=== PATIENT | female | born 1985 | race Caucasian/White ===

== ENCOUNTER 2016-08-01 13:22 | Emergency (ER) | payer MEDICAID, OTHER ==
[2016-08-01 14:04] LABS: % BASOPHILS 0.6 % (0.0-2.0); % EOSINOPHILS 2.1 % (0.0-5.0); % LYMPHOCYTES 28.8 % (20.0-50.0); % MONOCYTES 9.2 % (2.0-10.0); % NEUTROPHILS 59.3 % (40.0-80.0); HEMATOCRIT 41.5 % (35.0-45.0); HEMOGLOBIN 13.8 gm/dL (11.7-15.5); MEAN CELL VOLUME 85.3 fl (81-100); MEAN CORPUSCULAR HEMOGLOBIN 28.4 pg (27.0-31.0); MEAN CORPUSCULAR HGB CONC 33.3 pg (28.0-36.0); MEAN PLATELET VOLUME 7.9 fl; NEUTROPHILE ABSOLUTE 4.3 Th/cmm (1.8-8.0); PLATELET COUNT 281 Th/cmm (150-400); RED BLOOD COUNT 4.86 Mil/cmm (3.80-5.10); RED CELL DISTRIBUTION WIDTH 15.7 % (11.5-20.0)
--- NOTE | 2016-08-01 14:04 | ED Physician Chart ---
Chief Complaint/HPI - Patient Information Date Seen:: 08/01/16 Time Seen:: 14:01 Chief Complaint:: LEFT FLANK PAIN History of Present Illness:: THIS IS A 31 YO FEMALE WITH LEFT FLANK PAIN AND NO NAUSEA OR VOMITING. SHE JUST DELIVERED A BABY ABOUT A VINNIE Allergies:: Allergies Allergy/AdvReac Type Severity Reaction Status Date / Time No Known Allergies Allergy Verified 08/01/16 13:36 Vitals:: Vital Signs - 8 hr 08/01/16 13:37 Temp 97.1 F HR 68 RR 15 BP 109/66 O2 Sat % 99 Historian:: Patient Review:: Nurse's Note Reviewed Review of Systems - Review of Systems General/Constitutional: No fever, No chills, No weight loss, No weakness, No diaphoresis, No edema, No loss of appetite Skin: No skin lesions, No rash, No bruising Head: No headache, No light-headedness Eyes: No loss of vision, No pain, No diplopia ENT: No earache, No nasal drainage, No sore throat, No tinnitus Neck: No neck pain, No swelling, No thyromegaly, No stiffness, No mass noted Cardio Vascular: No chest pain, No palpitations, No PND, No orthopnea, No edema Pulmonary: No SOB, No cough, No sputum, No wheezing GI: No nausea, No vomiting, No diarrhea, Pain, No melena, No hematochezia, No constipation, No hematemesis G/U: No dysuria, No frequency, No hematuria Musculoskeletal: No bone or joint pain, No back pain, No muscle pain Endocrine: No polyuria, No polydipsia Psychiatric: No prior psych history, No depression, No anxiety, No suicidal ideation Hematopoietic: No bruising, No lymphadenopathy Allergic/Immuno: No urticaria, No angioedema Neurological: No syncope, No focal symptoms, No weakness, No paresthesia, No headache, No seizure, No dizziness, No confusion, No vertigo Past Medical History - Past Medical History Obtainable: Yes Past Medical History: No significant medical hx Family History: None Social History: Non Smoker, No Alcohol, No Drug Use Surgical History: None Psychiatricy History: None Medication: Reviewed Family Medical History - Family Member Mother History Unknown: Yes Physical Exam - Physical Examination General/Constitutional: Awake, Well-developed, well-nourished, Alert, No distress, GCS 15, Non-toxic appearing, Ambulatory Head: Atraumatic Eyes: Lids, conjuctiva normal, PERRL, EOMI Skin: Nl inspection, No rash, No skin lesions, No ecchymosis, Well hydrated, No lymphadenopathy ENMT: External ears, nose nl, Nasal exam nl, Lips, teeth, gums nl Neck: Nontender, Full ROM w/o pain, No JVD, No nuchal rigidity, No bruit, No mass, No stridor Respiratory: Nl effort/Exclusion, Clear to Auscultation, No Wheeze/Rhonchi/Rales Cardio Vascular: RRR, No murmur, gallop, rubs, NL S1 S2 GI: No organomegaly, No hernia, Normal BS's, Nondistended, No mass/bruits, No McBurney tenderness Other GI comments:: LEFT FLANK TENDERNESS : No CVA tenderness Extremities: No tenderness or effusion, Full ROM, normal strength in all extremities, No edema, Normal digits & nails Neuro/Psych: Alert/oriented, DTR's symmetric, Normal sensory exam, Normal motor strength, Judgement/insight normal, Mood normal, Normal gait, No focal deficits Misc: normal gait, Normal back, No paraspinal tenderness Assessment - Assessment General Assessment: AFTER THE ROCEPHIN HER EXAMINE WAS NORMAL IN THE L FLANK AND BLADDER AREA. THE PATIENT LOOKS MUCH BETTER. ED Septic Shock - . Is Septic Shock (SBP<90, OR Lactate>4 mmol\L) present?: No - <6hrs of presentation: Vital Signs: Vital Signs - 8 hr 08/01/16 13:37 Temp 97.1 F HR 68 RR 15 BP 109/66 O2 Sat % 99 Reassessment (Disposition) - Reassessment Reassessment Condition:: Improved - Diagnosis Diagnosis:: BRONCHITIS SINUSITIS URINARY TRACT INFECTION - Aftercare/Follow up Instructions Aftercare/Follow-Up Instructions:: Counseled pt regarding lab results/diagnosis & need follow up, Refer to Discharge Instructions, Counseled pt & family regarding lab results/diagnosis & need follow up - Patient Disposition Discharge/Transfer:: Home Condition at Disposition:: Improved
[2016-08-01 14:18] LABS: ALB/GLOB RATIO 1.2 (1.0-1.8); ALKALINE PHOSPHATASE 80 U/L (34-104); ANION GAP 10.8 (7.0-16.0); BILIRUBIN,TOTAL 0.3 mg/dL (0.3-1.0); BUN - UREA NITROGEN 10 mg/dL (7-25); BUN/CREATININE RATIO 16.7; CALCIUM SERUM 9.5 mg/dL (8.6-10.3); CARBON DIOXIDE 23.8 mEq/L (21.0-31.0); CHLORIDE 106 mEq/L (98-107); CREATININE - SERUM 0.6 mg/dL (0.6-1.2); GLUCOSE 87 mg/dL (70-105); POTASSIUM SERUM 3.6 mEq/L (3.5-5.1); SGOT 29 U/L (13-39); SGPT/ALT 33 U/L (7-52); SODIUM SERUM 137 mEq/L (136-145)
[2016-08-01 14:46] LABS: URINE BACTERIA FEW /hpf (NONE SEEN); URINE BILIRUBIN NEGATIVE (NEGATIVE); URINE BLOOD NEGATIVE (NEGATIVE); URINE COLOR YELLOW; URINE EPITHELIAL CELLS MODERATE /lpf (FEW); URINE GLUCOSE (UA) NEGATIVE (NEGATIVE); URINE KETONE NEGATIVE (NEGATIVE); URINE PH 7.5; URINE PROTEIN NEGATIVE (NEGATIVE); URINE RBC 0-1 /hpf (0-5); URINE UROBILINOGEN 0.2 E.U./dL (0.2 - 1.0); URINE WBC 0-2 /hpf (0-5)
[2016-08-01] MEDS ORDERED: IOHEXOL 300MG/ML 100 ML VIAL PO ONE (15:57)
--- NOTE | 2016-08-01 17:05 | Diagnostic Imaging Report ---
CT scan of the abdomen and pelvis with intravenous contrast History: Pain Total DLP equals 554 CTDI equals 11.8 Following administration of intravenous contrast, axial sections were obtained from the xiphoid process down to the pubic symphysis. Exam of the liver demonstrates a normal size and contour. No focal lesions are seen. The spleen appears normal. No abnormalities are seen in the region of the pancreas. The kidneys appear normal bilaterally. No focal lesions or hydronephrosis. There is a small fat-containing umbilical hernia. Nondilated stool-filled large bowel noted. The exam of the pelvis demonstrates a markedly distended urinary bladder. Hypodensity is seen within the adnexal regions bilaterally. Findings may be associated with ovarian cystic changes. If indicated, a pelvic ultrasound exam would provide additional detail. Impression: 1. Markedly distended urinary bladder 2. Suggestion of hypodensity within the adnexal regions bilaterally. The findings may be associated with ovarian cystic changes. If indicated, a pelvic ultrasound exam would provide additional detail. 3. Nondilated stool-filled large bowel or small fat-containing umbilical hernia
--- NOTE | 2016-08-02 11:41 | Diagnostic Imaging Report ---
Ultrasound abdomen HISTORY: Left flank tenderness COMPARISON: CT abdomen and pelvis performed the same day Technique: Sonography of the abdomen was performed in multiple planes. FINDINGS: The liver demonstrates normal echogenicity with no evidence of focal lesions. The liver measures 18.4 cm . No evidence of gallstones or gallbladder wall thickening. The common bile duct measures 3mm. Evaluation of the pancreas is limited due to bowel gas. The right kidney measures 13.1 cm. No evidence of focal lesions or hydronephrosis. The left kidney measures 11.4 cm. No evidence of focal lesions or hydronephrosis. The spleen measures 10.4 cm. The proximal aorta measures 1.75 cm. The mid abdominal aorta measures 1.3 cm. The distal abdominal aorta measures 1.6 cm. IMPRESSION: No evidence of hydronephrosis or sonographic evidence of renal stones. Mild increased right renal size. Please cortical clinical findings. Hepatomegaly.
--- NOTE | 2016-08-02 11:43 | Diagnostic Imaging Report ---
Ultrasound pelvis HISTORY: Pain. Last menstrual period is 07/09/2016. COMPARISON: CT abdomen and pelvis the same day Technique: Longitudinal and transverse sonographic sector images of the pelvis were obtained transabdominally and transvaginally. FINDINGS: The uterus measures 8.4 x 4.3 x 5.6 cm. The endometrium measures 7 mm. The right ovary measures 4.1 x 3.4 cm. A left lower measures 3.6 x 2.6 cm. Vascular flow to ovaries is noted. Bilateral ovarian follicular cystic changes are seen, right greater than left. Small amount of fluid is seen within the endocervical canal. Small amount of free fluid is also seen within the pelvis. IMPRESSION: Bilateral ovarian follicular cystic changes, likely physiologic. Vascular flow to both ovaries noted. Small amount of fluid within the endocervical canal. Small amount of free fluid was also noted within the pelvis. Please correlate clinically.
== END 2016-08-01 19:40 | disposition home or self-care (01) ==
LOC: ER 13:22
DX: J40 Bronchitis, not specified as acute or chronic (principal); J32.9 Chronic sinusitis, unspecified; N39.0 Urinary tract infection, site not specified
CPT/HCPCS: 99285; 96372 ×2; 76700; 76856; 74177; 36415; 85025; 81001; 81025; 80053; 87040 ×2; J1885; J0696; Q9967; Z7502

== ENCOUNTER 2016-08-03 07:16 | Inpatient (IN) | payer MEDICAID ==
--- NOTE | 2016-08-03 07:47 | ED Physician Chart ---
Chief Complaint/HPI - Patient Information Date Seen:: 08/03/16 Time Seen:: 07:42 Chief Complaint:: l abd pain History of Present Illness:: pt was here monday w left side abd/pelvic/flank pains...pt had a ct ab/p scan and a pelvic us. showed left ovarian infl changes but ok flow. pt reports pain is episodically sever and intolerable. she has had no fever. no diarrhea nor constipation. she feels nausea from the pain this am but no vomiting. pt w no vag dc and no urinary complaints. is not feeling better w tylenol and cipro. pt s/p vag delivery 05/29/16...her last 2 months of were complicated by a left side pain for which no explanation was ever attached by drs. pt says she was not given any pain meds during that time. she had a pelivc exam 1 month post delivery and was told all was well. pt had a nrml lmp last month..due again 08/06. pt was breast feeding but now is using a pump to keep up flow since on abx. pt was on antidepressant through (fluoxetine 20mg/d). 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 [place] to stay w her parents while selling that house. she has a appt to see her new pmd on 08/11/16. Allergies:: Allergies Allergy/AdvReac Type Severity Reaction Status Date / Time No Known Allergies Allergy Verified 08/03/16 07:28 Vitals:: Vital Signs - 8 hr 08/03/16 07:16 Temp 97.5 F HR 73 RR 16 BP 106/73 O2 Sat % 100 Historian:: Patient Review of Systems - Review of Systems General/Constitutional: No fever, No chills, No weight loss, No weakness, No diaphoresis, No edema, No loss of appetite Skin: No skin lesions, No rash, No bruising Head: No headache, No light-headedness Eyes: No loss of vision, No pain, No diplopia ENT: No earache, No nasal drainage, No sore throat, No tinnitus Neck: No neck pain, No swelling, No thyromegaly, No stiffness, No mass noted Cardio Vascular: No chest pain, No palpitations, No PND, No orthopnea, No edema Pulmonary: No SOB, No cough, No sputum, No wheezing GI: Nausea, No vomiting, No diarrhea, Pain, No melena, No hematochezia, No constipation, No hematemesis G/U: No dysuria, No frequency, No hematuria Musculoskeletal: No bone or joint pain, No back pain, No muscle pain Endocrine: No polyuria, No polydipsia Psychiatric: No prior psych history, No depression, No anxiety, No suicidal ideation Hematopoietic: No bruising, No lymphadenopathy Allergic/Immuno: No urticaria, No angioedema Neurological: No syncope, No focal symptoms, No weakness, No paresthesia, No headache, No seizure, No dizziness, No confusion, No vertigo Past Medical History - Past Medical History Past Medical History: Other (recent vag del 05/29/16) Social History: Non Smoker Surgical History: None Medication: Reviewed Family Medical History - Family Member Mother History Unknown: Yes Father Living Status: Still Living Hx Family Hypertension: Yes Physical Exam - Physical Examination General/Constitutional: Awake, Well-developed, well-nourished, Alert, No distress, GCS 15, Non-toxic appearing, Ambulatory Head: Atraumatic Eyes: Lids, conjuctiva normal, PERRL, EOMI Skin: Nl inspection, No rash, No skin lesions, No ecchymosis, Well hydrated, No lymphadenopathy ENMT: External ears, nose nl, Nasal exam nl, Lips, teeth, gums nl Neck: Nontender, Full ROM w/o pain, No JVD, No nuchal rigidity, No bruit, No mass, No stridor Respiratory: Nl effort/Exclusion, Clear to Auscultation, No Wheeze/Rhonchi/Rales Cardio Vascular: RRR, No murmur, gallop, rubs, NL S1 S2 GI: No tenderness/rebounding/guarding, No organomegaly, No hernia, Normal BS's, Nondistended, No mass/bruits, No McBurney tenderness Other GI comments:: vague tndr low left pelvis/abd..also points to left cva as source of pain. quiet bs. no rebound. no masses. : No CVA tenderness Extremities: No tenderness or effusion, Full ROM, normal strength in all extremities, No edema, Normal digits & nails Neuro/Psych: Alert/oriented, DTR's symmetric, Normal sensory exam, Normal motor strength, Judgement/insight normal, Mood normal, Normal gait, No focal deficits Misc: normal gait, Normal back, No paraspinal tenderness Labs/Radiology/EKG Results - Lab Results Results: Laboratory Tests 08/03/16 08/03/16 08/03/16 08:15 08:15 09:40 WBC 6.7 RBC 4.64 Hgb 13.2 Hct 38.6 MCV 83.3 MCH 28.5 MCHC Differential 34.3 RDW 15.5 Plt Count 279 MPV 7.5 Neutrophils % 49.5 Lymphocytes % 41.3 Monocytes % 7.1 Eosinophils % 1.8 Basophils % 0.3 Sodium 134 L Potassium 4.4 Chloride 107 Carbon Dioxide 20.3 L Anion Gap 11.1 BUN 11 Creatinine 0.7 Est GFR ( Amer) > 60.0 Est GFR (Non-Af Amer) > 60.0 BUN/Creatinine Ratio 15.7 Glucose 93 Calcium 9.4 Total Bilirubin 0.3 AST 31 ALT 27 Alkaline Phosphatase 87 Total Protein 7.0 Albumin 4.0 Globulin 3.0 Albumin/Globulin Ratio 1.3 Lipase 14 Urine Source Urine Color Urine Clarity Urine pH Ur Specific [place] Urine Protein Urine Glucose (UA) Urine Ketones Urine Blood Urine Nitrate Urine Bilirubin Urine Urobilinogen Ur Leukocyte Esterase Urine RBC Urine WBC Ur Epithelial Cells Urine Bacteria Urine Test NEGATIVE 08/03/16 09:40 WBC RBC Hgb Hct MCV MCH MCHC Differential RDW Plt Count MPV Neutrophils % Lymphocytes % Monocytes % Eosinophils % Basophils % Sodium Potassium Chloride Carbon Dioxide Anion Gap BUN Creatinine Est GFR ( Amer) Est GFR (Non-Af Amer) BUN/Creatinine Ratio Glucose Calcium Total Bilirubin AST ALT Alkaline Phosphatase Total Protein Albumin Globulin Albumin/Globulin Ratio Lipase Urine Source CLEAN C Urine Color YELLOW Urine Clarity SL. CLOUDY Urine pH 7.5 Ur Specific [place] 1.025 Urine Protein NEGATIVE Urine Glucose (UA) NEGATIVE Urine Ketones NEGATIVE Urine Blood NEGATIVE Urine Nitrate NEGATIVE Urine Bilirubin NEGATIVE Urine Urobilinogen 0.2 Ur Leukocyte Esterase NEGATIVE Urine RBC NONE SEEN Urine WBC 0-2 Ur Epithelial Cells MANY Urine Bacteria OCCASIONAL Urine Test - Radiology Results Results: us abd/p negative except for changes cw b ovarian cysts. no fluid in uterous. slt fluid around l adnexa/left uterous..less than before. ct abd/p- mod dist loops small bowel left hemidiaphragm. focal ileus vs infection vs inflamatory changes. regional mesentary inflam changes ED Septic Shock - . Is Septic Shock (SBP<90, OR Lactate>4 mmol\L) present?: No - <6hrs of presentation: Vital Signs: Vital Signs - 8 hr 08/03/16 07:16 Temp 97.5 F HR 73 RR 16 BP 106/73 O2 Sat % 100 Reassessment (Disposition) - Reassessment Reassessment:: case dw dr guzman 12;59 who is admitting for sx consult... Reassessment Condition:: Improved - Diagnosis Diagnosis:: 1. left sided abdominal pain fo uncertain etiology 2. back pain 3. ileus vs infection vs inflammatory changes and distended loops of s.b. of left small bowel - Aftercare/Follow up Instructions Aftercare/Follow-Up Instructions:: Counseled pt & family regarding lab results/ diagnosis & need follow up - Patient Disposition Admitted to:: Med/Surg Condition at Disposition:: Unchanged
[2016-08-03] MEDS ORDERED: Sodium Chloride 0.9% 1,000 ML IV ONE (08:02)
[2016-08-03] MEDS ORDERED: Morphine Sulfate 4 mg/mL 1mL Syr IVP STA (08:04)
[2016-08-03] MEDS ORDERED: Morphine Sulfate 4 mg/mL 1mL Syr ONE (08:28)
[2016-08-03 08:30] LABS: % BASOPHILS 0.3 % (0.0-2.0); % EOSINOPHILS 1.8 % (0.0-5.0); % LYMPHOCYTES 41.3 % (20.0-50.0); % MONOCYTES 7.1 % (2.0-10.0); % NEUTROPHILS 49.5 % (40.0-80.0); HEMATOCRIT 38.6 % (35.0-45.0); HEMOGLOBIN 13.2 gm/dL (11.7-15.5); MEAN CELL VOLUME 83.3 fl (81-100); MEAN CORPUSCULAR HEMOGLOBIN 28.5 pg (27.0-31.0); MEAN CORPUSCULAR HGB CONC 34.3 pg (28.0-36.0); MEAN PLATELET VOLUME 7.5 fl; NEUTROPHILE ABSOLUTE 3.3 Th/cmm (1.8-8.0); PLATELET COUNT 279 Th/cmm (150-400); RED BLOOD COUNT 4.64 Mil/cmm (3.80-5.10); RED CELL DISTRIBUTION WIDTH 15.5 % (11.5-20.0); WHITE BLOOD COUNT 6.7 Th/cmm (4.8-10.8)
[2016-08-03 08:44] LABS: ALB/GLOB RATIO 1.3 (1.0-1.8); ALKALINE PHOSPHATASE 87 U/L (34-104); ANION GAP 11.1 (7.0-16.0); BILIRUBIN,TOTAL 0.3 mg/dL (0.3-1.0); BUN - UREA NITROGEN 11 mg/dL (7-25); BUN/CREATININE RATIO 15.7; CALCIUM SERUM 9.4 mg/dL (8.6-10.3); CARBON DIOXIDE 20.3 mEq/L (21.0-31.0); CHLORIDE 107 mEq/L (98-107); CREATININE - SERUM 0.7 mg/dL (0.6-1.2); GLUCOSE 93 mg/dL (70-105); LIPASE 14 U/L (11-82); POTASSIUM SERUM 4.4 mEq/L (3.5-5.1); SGOT 31 U/L (13-39); SGPT/ALT 27 U/L (7-52); SODIUM SERUM 134 mEq/L (136-145)
--- NOTE | 2016-08-03 10:26 | Diagnostic Imaging Report ---
Ultrasound abdomen HISTORY: Abdominal pain. Ovarian cysts. COMPARISON: CT abdomen and pelvis on 08/01/2016 ultrasound abdomen on 08/01/2016 Technique: Sonography of the abdomen was performed in multiple planes. FINDINGS: Exam is limited due to bowel gas. The liver demonstrates normal echogenicity with no evidence of focal lesions. The liver measures 19 cm. The gallbladder is mildly dilated. No evidence of gallstones or gallbladder wall thickening. The common bile measures 4 mm. Evaluation of the pancreas is limited due to bowel gas. The right kidney measures 13.2 cm. No evidence of focal lesions or hydronephrosis. The left kidney measures 10.9 cm. No evidence of focal lesions or hydronephrosis. The spleen measures 10.1 cm. IMPRESSION: Mild hepatomegaly. Mildly dilated gallbladder, however, no evidence of gallstones No evidence of hydronephrosis. Mild increased size of the right kidney as seen on prior exam.
--- NOTE | 2016-08-03 10:40 | Diagnostic Imaging Report ---
Ultrasound pelvis HISTORY: Low back and pelvic pain. History of pelvic cysts. LMP is 08/06/2016 beta-hCG is not available. COMPARISON: Ultrasound pelvis on 08/01/[address] abdomen and pelvis on 08/01/2016 Technique: Longitudinal and transverse sonographic sector images of the pelvis were obtained transabdominally and transvaginally. FINDINGS: The uterus measures 9.0 x 4.4 x 5.8 cm. The endometrium measures 6 mm. No evidence of fluid in the endometrial cavity. The right ovary measures 3.1 x 2.3 cm demonstrating follicular cystic changes the largest measuring 1.6 cm. The left ovary measures 2.9 x 2.6 cm demonstrating follicular cystic changes the largest measuring 0.7 cm. Small amount of free fluid is noted in the pelvis. IMPRESSION: Bilateral ovarian follicular cystic changes with dominant right ovarian follicular cyst measuring 1.6 cm. Small amount of free fluid in the pelvis. The endometrium measures 6 mm, please correlate with menstrual cycle. In the presence of a positive test, ectopic gestation should be excluded.
[2016-08-03 11:06] LABS: URINE BILIRUBIN NEGATIVE (NEGATIVE); URINE BLOOD NEGATIVE (NEGATIVE); URINE COLOR YELLOW; URINE GLUCOSE (UA) NEGATIVE (NEGATIVE); URINE KETONE NEGATIVE (NEGATIVE)
[2016-08-03 11:07] LABS: URINE PH 7.5; URINE PROTEIN NEGATIVE (NEGATIVE); URINE UROBILINOGEN 0.2 E.U./dL (0.2 - 1.0)
[2016-08-03 11:14] LABS: URINE BACTERIA OCCASIONAL /hpf (NONE SEEN); URINE EPITHELIAL CELLS MANY /lpf (FEW); URINE RBC NONE SEEN /hpf (0-5); URINE WBC 0-2 /hpf (0-5)
--- NOTE | 2016-08-03 11:43 | Diagnostic Imaging Report ---
CT abdomen and pelvis without intravenous contrast Indication: Left-sided abdominal pain increased since previous exams Comparison: Prior CT abdomen and pelvis on 08/01/2016, study was also compared to today's ultrasound. Technique: Axial images were obtained from the lung bases to the bilateral proximal femurs without IV contrast. Coronal reconstructions were made. total DLP: 496, CTDI 10.5 FINDINGS: Hypoventilatory and atelectatic changes of the lung bases are noted. The hepatic dome is incompletely visualized on this exam. Assessment of solid organs is limited due to lack of IV contrast. No focal hepatic lesions. No evidence of focal splenic or pancreatic lesions. No focal adrenal lesions. No evidence of hydronephrosis or focal renal lesions. Distended urinary bladder is noted. Right adnexal cystic changes are noted. Moderate stool is seen throughout the colon. No evidence of acute appendicitis. There are mild to moderate distended fluid-filled loops of bowel along the left hemiabdomen with minimal haziness of the mesentery in this region. No free fluid or free air. The osseous structures demonstrate no acute abnormalities. IMPRESSION: Mild to moderate fluid distended loops of small bowel along the left hemiabdomen. Findings are nonspecific and may be due to focal ileus or infectious or inflammatory process. Minimal haziness and inflammatory changes of regional mesentery is also noted. Please correlate with clinical findings. Copious stool throughout the colon. Please correlate Clinically for constipation. No evidence of free fluid in the pelvis. Small right adnexal cystic changes.
--- NOTE | 2016-08-03 13:52 | Admit Criteria Form ---
Admit Criteria Forms - Admit Criteria Diagnosis: ABDOMINAL PAIN Clinical Indications for Admission to Inpatient Care (Place 'X' for any and all applicable criteria): Admission is indicated for ANY ONE of the following(1)(2)(3)(4)(5): [X ]I. Inpatient admission required rather than observation care (Also use Abdominal Pain: Observation Care, as appropriate) because of ANY ONE of the following: [ X]a) Severe pain requiring acute inpatient management [ ]b) Identification of etiology/finding that requires inpatient care (eg, aortic dissection, free air) [ ]c) Absent bowel sounds with complete ileus(6) [ ]d) Suspected toxic megacolon [ ]e) Severe electrolyte abnormalities requiring inpatient care [ ]f) High fever or infection requiring inpatient admission as indicated by ANY ONE of following(7)(8): [ ] i) Appropriate outpatient or observational care antimicrobial treatment unavailable, not effective, or not feasible [ ] ii) Documented bacteremia [ ] iii) Temperature > 104.9 degrees F (oral) [ ] iv) T >103.1 F (oral) or < 96.8 F(rectal) that does not respond to all emergency treatment measures [ ]g) Signs of intestinal obstruction [B] [ ]h) Hemodynamic instability [ ]i) IV fluid to replace significant ongoing losses (greater than 3 L/m2 per day) (12)(13) [ ]j) Percutaneous or open drainage (eg, abscess, biliary tract ) procedures [ ]k) Parenteral nutrition regimen that must be implemented on inpatient basis [ ]l) Other condition,treatment or monitoring requiring inpatient admission. [ ]II. Peritoneal signs present [ ]III. Surgery needed that cannot be performed on an ambulatory basis. [ ]IV. Evaluation requires patient to not eat or drink for extended period ( eg, more than 24 hours). [ ]V. Contraindications and/or Inappropriate clinical situations for Observational Care in patients with abdominal pain, when ANY ONE of the following is required: [ ]a) Thorough evaluation is required to prevent catastrophic events due to delays in diagnosing (e.g.Mesenteric ischemia) 1,3 [ ]b) Patient with severe pathology or with chronic symptoms unlikely to improve in the ED stay (3) [ ]. General contraindications and/or Inappropriate clinical situations for Observational Care in patients with abdominal pain, when ANY ONE of the following is required: [ ]a) Prediction of prolongation of LOS based on ANY ONE of the following may be considered as a contraindication for observational care 2, 3, 4, 5, 6, 7, 8, 9, 10, 11 [ ]i) Age > 65 yrs. [ ]ii) Patient arriving by ambulance [ ]iii) Patient with high acuity [ ]iv) Patient requiring vital sign monitoring [ ]v) Patient on IV medication [ ]b) Systolic blood pressures 180mmHg 3,12 [ ]c) Patient with altered mental status including delirium and other alteration of consciousness, (3) [ ]d) Patient whose discharge disposition will be to a senior living home or rehabilitation home should not be managed in Emergency Department Observation Unit. CMS rule requires 3 days hospital stay before such placement.3,13 [ ]e) Patient with failure to thrive due to broad array of etiologies 3,16,17 [ ]f) Inability to ambulate 3,14 Extended stay beyond goal length of stay may be needed for(2)(3): [ ]a) Persistent abdominal pain with suspected intra-abdominal process [ ]b) Diagnosed condition requiring continued stay (e.g., pancreatitis, complicated diverticulitis) [ ]c) Surgery (e.g., colectomy) The original [facility] content created by [employer] has been revised. The portions of the content which have been revised are identified through the use of italic text or in bold, and [facility] has neither reviewed nor approved the modified material.All other unmodified content is copyright [facility]. Please see references footnoted in the original [facility] edition 2016 Admit Criteria Met?: Yes
[2016-08-03] MEDS: D5-0.45NS 1,000 ML IV SCH (16:25)
[2016-08-03] MEDS: cefTRIAXone 1 GM in Sodium Chloride 0.9% 50 ML IV SCH (16:27)
[2016-08-03] MEDS: Morphine Sulfate 2 mg/mL 1mL Syr IV PRN (21:41)
[2016-08-04 06:57] LABS: % BASOPHILS 0.5 % (0.0-2.0); % LYMPHOCYTES 39.4 % (20.0-50.0); % MONOCYTES 8.1 % (2.0-10.0); HEMATOCRIT 39.6 % (35.0-45.0); HEMOGLOBIN 13.2 gm/dL (11.7-15.5); MEAN CORPUSCULAR HEMOGLOBIN 28.3 pg (27.0-31.0); MEAN CORPUSCULAR HGB CONC 33.3 pg (28.0-36.0); MEAN PLATELET VOLUME 7.5 fl; NEUTROPHILE ABSOLUTE 2.8 Th/cmm (1.8-8.0); PLATELET COUNT 280 Th/cmm (150-400); RED BLOOD COUNT 4.66 Mil/cmm (3.80-5.10); RED CELL DISTRIBUTION WIDTH 15.3 % (11.5-20.0); WHITE BLOOD COUNT 5.8 Th/cmm (4.8-10.8)
[2016-08-04 07:24] LABS: ALB/GLOB RATIO 1.2 (1.0-1.8); ALKALINE PHOSPHATASE 77 U/L (34-104); BILIRUBIN,TOTAL 0.4 mg/dL (0.3-1.0); BUN - UREA NITROGEN 6 mg/dL (7-25); BUN/CREATININE RATIO 8.6; CALCIUM SERUM 9.2 mg/dL (8.6-10.3); CARBON DIOXIDE 26.8 mEq/L (21.0-31.0); CHLORIDE 105 mEq/L (98-107); CREATININE - SERUM 0.7 mg/dL (0.6-1.2); GLUCOSE 93 mg/dL (70-105); LIPASE 9 U/L (11-82); POTASSIUM SERUM 3.8 mEq/L (3.5-5.1); SGOT 26 U/L (13-39); SGPT/ALT 26 U/L (7-52); SODIUM SERUM 138 mEq/L (136-145)
[2016-08-04] MEDS ORDERED: Diatrizoate Meglumine/Diatri 30 mL Sol PO ONE (10:15)
[2016-08-04] MEDS: Lactulose 10 Gm/15 mL 30mL UDC PO SCH ×2 (10:43→16:38)
--- NOTE | 2016-08-04 12:30 | History & Physical ---
CHIEF COMPLAINT: Persistent abdominal pain. HISTORY OF PRESENT ILLNESS: This is a 31-year-old female with no medical problem status post delivery on 05/29/2016, who reports a 15 day hx of worsening secondary left-sided abdominal pain. The patient apparently was induced earlier from her due date given the persistent pain which started around her 7th month of . Post delivery, she has had recurrence of pain, which is on and off and it is worsened when lying down. She denies any constipation, any nausea, vomiting, any acid reflux symptomatology or any previous similar episodes. She also denies any hx of constipation or any GI symptomatology history. The patient tells me that she was medicated with an epidural and had fentanyl during her delivery, but has not been taking any narcotics post delivery. She presented to the ER a couple days ago for the above-mentioned symptomatology and also cold symptoms for which she was given Zithromax, but the pain has remained and now it is diffuse epigastric, but again it is mostly located in the left side of her abdomen. She does report daily bowel movements but again denies any significant constipation. The patient also was diagnosed with UTI on her previous ER visit and also was given Cipro. PERTINENT FINDINGS ON ADMISSION: Include an abdominal and pelvic CT, which showed mild to moderate fluid, distended loops of small bowel on the left hemiabdomen. Findings are nonspecific and may be due to focal ileus or inflammatory process. There was also an abdominal ultrasound done showing mild hepatomegaly. The patient has been admitted to the medical floor for further management and care. PAST MEDICAL HISTORY: None. PAST SURGICAL HISTORY: None. FAMILY HISTORY: Essentially negative. SOCIAL HISTORY: No tobacco, ETOH or illicit drug usage. Lives at home with family. ALLERGIES: NKDA. OUTPATIENT MEDICATIONS: Tylenol 500 mg q. 8 p.r.n. for pain, Z-Jasper, ciprofloxacin 250 mg b.i.d. and Prozac 20 every day. REVIEW OF SYSTEMS: CONSTITUTIONAL: No fever or chills. CARDIAC: No chest pain, palpitations. PULMONARY: No cough or sputum production. GASTROINTESTINAL: Please refer to the HPI. GENITOURINARY: Denies any dysuria, hematuria or nocturia. NEUROLOGIC: No changes in vision. No syncope. PHYSICAL EXAMINATION: VITAL SIGNS: Temperature 98.4, pulse 68, BP 102/63, respirations 18, satting 100% on room air. GENERAL: Well-developed, well-nourished female, awake, alert and oriented x 3, not in acute distress. HEAD AND NECK: Normocephalic, atraumatic. Pupils reactive to light. CARDIOVASCULAR: Regular rate and rhythm without any murmurs. LUNGS: Clear to auscultation bilaterally. ABDOMEN: Soft, supple. Currently, nontender, nondistended. There is no rebound and there is normoactive bowel sounds. LOWER EXTREMITIES: There is no pedal edema. LABORATORY DATA: CBC was essentially within normal limits. Chem-20 was essentially within normal limits. UA was negative. DIAGNOSTICS: Please refer to HPI. IMPRESSION: 1. Persistent left-sided abdominal pain, likely secondary to focal ileus/constipation, doubt infectious etiology. (ddx includes the above vs IBS?) 2. Ileus/constipation. 3. Hepatomegaly. 4. Recent vaginal delivery. PLAN: The patient has been admitted to the medical floor for supportive care and treatment. She has been placed on IV fluids and empiric IV Rocephin. I had discussed the findings of the diagnostics, and the patient will receive stool laxatives and anti-constipation medications. Given the length of her symptoms, a GI eval will also be asked for further management and care. SBFT will be order to r/o SBO. JOB# [id number] NETTA
--- NOTE | 2016-08-04 12:51 | Diagnostic Imaging Report ---
KUB abdominal film HISTORY: Pain The exam demonstrates stool-filled nondilated large bowel with an otherwise nonspecific appearance. Air seen in the rectal region. No free intraperitoneal air. Small calcification noted in the left lower pelvis. IMPRESSION: 1. Stool-filled nondilated large bowel with an otherwise nonspecific appearance.
--- NOTE | 2016-08-04 16:28 | Diagnostic Imaging Report ---
Small bowel follow-through HISTORY: Pain, abdominal distention Water-soluble contrast was administered by mouth. There is free flow contrast from the stomach into the duodenum. Normal transit of contrast through the remainder of the small bowel to the colon. There is a normal small bowel caliber and mucosal pattern. No focal abnormalities. No evidence of any extrinsic masses. IMPRESSION: Negative examination.
[2016-08-04] MEDS: cefTRIAXone 1 GM in Sodium Chloride 0.9% 50 ML IV SCH (16:42)
[2016-08-04] MEDS: D5-0.45NS 1,000 ML IV SCH (21:57)
[2016-08-05] MEDS: Morphine Sulfate 2 mg/mL 1mL Syr IV PRN (04:33)
--- NOTE | 2016-08-05 06:46 | Consultation ---
INPATIENT GI CONSULTATION REFERRING PHYSICIAN: Dr. Alvarado. REASON FOR CONSULTATION: Change in bowel habits, constipation, and abdominal pain. HISTORY OF PRESENT ILLNESS: This is a 31-year-old female, who was recently in the hospital with left-sided pain and was sent home, but pain recurred, and therefore came back to the hospital. She states that she has been feeling constipated, denies nausea or vomiting, denies diarrhea. Denies melena, hematochezia, hematemesis, or coffee-ground emesis. PAST MEDICAL HISTORY: Recent delivery from 2 months ago. PAST SURGICAL HISTORY: None to abdomen. FAMILY HISTORY: Noncontributory. SOCIAL HISTORY: Denies tobacco, alcohol, or IV drug usage. ALLERGIES: None. CURRENT MEDICATIONS: Dulcolax, ceftriaxone, Colace, Prozac, Toradol, lactulose, morphine, and Zofran. REVIEW OF SYSTEMS: Ten-point review of system was performed and the pertinent positives were constipation and lower abdominal pain. All other systems were otherwise negative. PHYSICAL EXAMINATION: VITAL SIGNS: Temperature is 98.4, breathing 18, pulse of 68, blood pressure 102/63, satting 100%. GENERAL: In no apparent distress. EYES: Anicteric, normal conjunctivae. HEENT: Normocephalic and atraumatic. Moist mucous membranes. NECK: Soft, supple. CHEST: Clear. No effort. CARDIOVASCULAR: Regular rate and rhythm. ABDOMEN: Soft, nondistended, mildly tender in the left lower quadrant. No rebound or guarding. SKIN: Warm and dry. EXTREMITIES: Reveal no cyanosis. PSYCHOLOGIC: Alert and oriented x 3. LABORATORY DATA: Showed normal urinary analysis, normal LFTs and lipase. Normal CBC. CT of the abdomen and pelvis showed fluid distended small bowel loops, copious amounts of stool throughout the colon. Abdominal ultrasound showed hepatomegaly. IMPRESSION: A 31-year-old female with change in bowel habits, left lower quadrant pain. CT suggesting enteritis and constipation. This could explain the abdominal pain type of picture. The patient is currently on antibiotics. Colonoscopy was offered to the patient to evaluate the constipation, but she declined. She was made aware that failure to have a colonoscopy could result in a missed diagnosis such as cancer, although less likely given her age, missed diagnosis, missed cure and treatment opportunity resulting in early or unforeseeable disability. PLAN: 1. Continue laxatives and antibiotics. 2. Offered colonoscopy, the patient refused. 3. Small bowel follow through was ordered by primary care provider and is pending. Thank you for allowing me to participate. Please call me if you have any questions. JOB# [id number]
[2016-08-05] MEDS: Lactulose 10 Gm/15 mL 30mL UDC PO SCH (09:15)
--- NOTE | 2016-08-05 15:56 | Discharge Summary ---
ADMITTING DIAGNOSES: 1. Left-sided abdominal pain. 2. Focal ileus. 3. Constipation. 4. Hepatomegaly. 5. Recent vaginal delivery. DISCHARGE DIAGNOSES: 1. Left-sided abdominal pain, improved. 2. Focal ileus. 3. Constipation, improved. 4. Hepatomegaly. 5. Recent vaginal delivery. CONSULTANTS: DIANNA Weber. DISCHARGE MEDICATIONS: Dulcolax 5 mg every day, Colace 250 b.i.d., lactulose 15 15ml b.i.d. p.r.n. for severe constipation, Prozac 20 mg every day. MAJOR PROCEDURES: The patient had an abdominal ultrasound on 08/03/2016 showing mild hepatomegaly; otherwise, negative. There was also a CT of the abdomen and pelvis done on 08/03/2016 showing [id number] fluid accumulation with distended loops of small bowel, mild on the left donn-abdomen. Findings are nonspecific and may be due to focal ileus or inflammatory process. She underwent a KUB on 08/04 showing stool filled nondilated large bowel with an otherwise nonspecific appearance and there was a small bowel follow-through on 08/04 showing no abnormalities. BRIEF HOSPITAL COURSE: This is a 31-year-old female who delivered vaginally on 05/29/2016 and who apparently had complications the last couple of months of her with persistent left-sided abdominal pain. Apparently, she was induced and delivered couple of months before her due date secondary to the pain , which initially improved after delivery, but for the last couple of weeks reocurring and gradually getting worst. Pain was similar to the pain she experienced during her . Pain was described as colicky, and is not associated with nausea, vomiting or diarrhea and not necessary associated with constipation as the patient reported daily bowel movements. However, the pain as mentioned above was persistent and had become more diffuse. The patient was eventually admitted after a couple of ER visits. She underwent above-mentioned diagnostics and was placed on IV fluids and empiric IV antibiotics. She was also placed on laxatives and stool softeners with improvement actually resulting in multiple bowel movements and improving on her symptoms namely the left-sided abdominal pain. The patient was also seen by GI who recommended colonoscopy, but at this time, the patient refused given that her symptoms had improved with the laxatives. She will consider the procedure as an outpatient if symptoms reoccur. CONDITION ON DISCHARGE: Stable. DISPOSITION: The patient was advised to go to her primary care doctor within a couple of days and again to follow up as an outpatient if her symptoms persisted with GI specialist. [facility]# [id number] MTDJason
== END 2016-08-05 10:50 | disposition home or self-care (01) | DRG 247 ==
LOC: ER 07:16 → MSI 13:10
PROVIDERS: ADMIT Internal Medicine; ATTEND Internal Medicine
DX: K56.7 Ileus, unspecified (principal); R16.0 Hepatomegaly, not elsewhere classified; K59.00 Constipation, unspecified; M54.9 Dorsalgia, unspecified; Z82.49 Family history of ischemic heart disease and other diseases of the circulatory system
CPT/HCPCS: 36415-UA; 74000-TC; 74250-TC; 76700-TC; 76856-TC; 80053-TC; 81001-TC; 81025-TC; 83690-TC; 83735-TC; 85025-TC; 96374; 96375; J0696; J1885; J2270; J2405; J7030